=== PATIENT | female | born 1985 | race Caucasian/White ===

== ENCOUNTER 2025-10-11 20:56 | Emergency (ER) | payer OTHER ==
[~2025-10-11] VITALS: Ht 162.5 cm; Wt 63.5 kg
[2025-10-11] MEDS ORDERED: FAMOTIDINE 50 ML IV ONE (21:35)
[2025-10-11 21:48] LABS: BASO # 0.1 10*3/uL (0.0-0.1); BASO % 0.7 % (0.0-1.0); EOS # 0.5 10*3/uL (0.0-0.4); EOS % 2.8 % (1.0-4.0); MEAN CELL VOLUME 82.8 fl (81.0-99.0); MEAN CORPUSCULAR HGB 26.7 pg (27.0-31.0); MEAN PLATELET VOLUME 8.2 fl (9.6-12.3); MONO # 0.9 10*3/uL (0.1-1.0); MONO % 5.0 % (3.0-9.0); NEUT # 13.0 10*3/uL (2.3-7.9); NEUT % 71.0 % (47.0-73.0); NUCLEATED RED BLOOD CELL 0.0 % (0.0-0.0); NUCLEATED RED BLOOD CELL 0.0 10*3/uL (0.0-0.0); PLATELET COUNT AUTOMATED 449 10*3/uL (130-400); RED CELL DISTRI WIDTH 12.0 % (0-14.5)
[2025-10-11 22:13] LABS: BUN 11 mg/dl (9-23)
[2025-10-12] MEDS ORDERED: ZITHROMAX250 MG PO ×2 (00:32→00:36)
[2025-10-12] MEDS ORDERED: PREDNISONE10 M1 PO (00:36)
[2025-10-12] MEDS ORDERED: EPIPEN 2-P0.3 MG/0.3 IJ (00:36)
[2025-10-12] MEDS ORDERED: ALBUTEROL 8 GM INHALER INH ONE (00:40)
[2025-10-12] MEDS ORDERED: AZITHROMYCIN 250 MG TAB PO ONE (00:55)
[2025-10-12] MEDS ORDERED: AZITHROMYCIN 250 ML IV SCH (12:00)
== END 2025-10-12 00:50 | disposition home or self-care (01) ==
LOC: ED 20:56
PROVIDERS: Emergency Medicine
DX: T78.40XA Allergy, unspecified, initial encounter (principal); J45.909 Unspecified asthma, uncomplicated; X58.XXXA Exposure to other specified factors, initial encounter